=== PATIENT | female | born 1990 | race Caucasian/White ===

== ENCOUNTER 2019-03-27 10:34 | Emergency (ER) | payer OTHER ==
--- NOTE | 2019-03-27 12:39 | ED Physician Documentation ---
History of Present Illness - Stated complaint Stated Complaint: VOMITING/WEAKNESS - Chief complaint Chief Complaint: General - History obtained from History obtained from: Patient - History of Present Illness Timing: How many weeks ago (1) Pain level max: 0 Pain level now: 0 - Additonal information Additional information: 28-year-old female recently started on clonazepam 0.5 mg p.o. twice daily as well as Paxil. Unknown dosage. Since that time she has been feeling more tired than usual. States she has had intermittent nausea as well. No abdominal pain. No fevers. No possibility of . No coughing. Does not feel suicidal or homicidal. No hallucinations. Has not contacted her doctor. Nothing makes it better or worse Review of Systems Constitutional: denies: Fever, Chills Throat: denies: Sore throat GI: denies: Diarrhea, Hematemesis, Bloody / black stool : denies: Dysuria, Now EGA Skin: denies: Rash Musculoskeletal: denies: Neck pain, Back pain Neurologic: denies: Headache PD PAST MEDICAL HISTORY - Past Medical History Past Medical History: No Cardiovascular: None Respiratory: None Neuro: None Endocrine/Autoimmune: None GI: None DISTRIBUTION SPECIALIST: None : None HEENT: None Psych: Depression, Anxiety Musculoskeletal: Chronic back pain Derm: None - Past Surgical History Past Surgical History: Yes HEENT: Tonsil/Adenoidectomy Derm: Other - Present Medications Home Medications: Ambulatory Orders Medication Instructions Recorded Confirmed Nexplanon 01/15/16 Cephalexin [Keflex] 500 mg PO BID #10 capsule 07/23/16 Meloxicam 1 tab PO DAILY 07/23/16 07/23/16 Phenazopyridine HCl [Pyridium] 200 mg PO TID PRN #6 tablet 07/23/16 - Allergies Allergies/Adverse Reactions: Allergies Allergy/AdvReac Type Severity Reaction Status Date / Time No Known Drug Allergies Allergy Verified 03/27/19 10:42 - Social History Does the pt smoke?: Yes Smoking Status: Current every day smoker Does the pt drink ETOH?: Yes Does the pt have substance abuse?: No - Immunizations Immunizations are current?: Yes - POLST Patient has POLST: No PD ED PE NORMAL - Vitals Vital signs reviewed: Yes - General General: Alert and oriented X 3, No acute distress, Well developed/nourished - HEENT HEENT: PERRL, Moist mucous membranes - Neck Neck: Supple, no meningeal sign - Cardiac Cardiac: RRR, Strong equal pulses - Respiratory Respiratory: No respiratory distress, Clear bilaterally - Abdomen Abdomen: Soft, Non tender, Non distended - Derm Derm: Warm and dry - Extremities Extremities: No edema - Neuro Neuro: Alert and oriented X 3 - Psych Psych: Normal mood, Normal affect Results - Vitals Vitals: Vital Signs - 24 hr 03/27/19 10:38 Temperature 36.0 C L Heart Rate 105 H Respiratory 19 Rate Blood Pressure 127/91 H O2 Saturation 99 Oxygen O2 Source Room air PD MEDICAL DECISION MAKING - ED course Complexity details: considered differential, d/w patient ED course: Patient with apparent side effects from clonazepam, possibly the Paxil as well. We will have her decrease the clonazepam to 0.25 mg by mouth twice a day. We will have her contact her doctor for further instructions on her medications. Patient counseled regarding signs and symptoms for which I believe and urgent re-evaluation would be necessary. Patient with good understanding of and agreement to plan and is comfortable going home at this time This document was made in part using voice recognition software. While efforts are made to proofread this document, sound alike and grammatical errors may occur. Departure - Departure Disposition: 01 Home, Self Care Clinical Impression: Somnolence, Medication side effect Condition: Good Instructions: Clonazepam tablets Follow-Up: Evy Joseph ARNP [Primary Care Provider] - Within 3 Days Comments: Decrease your clonazepam to 0.25 mg by mouth twice a day. You can decrease this to once a day if you would like as well. Call your doctor today for a follow-up appointment and further instructions regarding your medications. Forms: Activity restrictions
[2019-03-27 12:54] VITALS: BP 96/68
== END 2019-03-27 12:56 | disposition home or self-care (01) ==
LOC: ED 10:34
DX: R40.0 Somnolence (principal); T42.4X5A Adverse effect of benzodiazepines, initial encounter; F17.200 Nicotine dependence, unspecified, uncomplicated
CPT/HCPCS: 99281; 99282

== ENCOUNTER 2021-05-05 19:51 | Emergency (ER) | payer OTHER ==
[2021-05-05 20:59] LABS: BASOPHILS % (AUTO) 0.3 %; EOSINOPHILS # (AUTO) 0.2 10^3/uL (0.0-0.7); EOSINOPHILS % (AUTO) 1.8 %; HGB - HEMOGLOBIN 15.4 g/dL (12.0-16.0); LYMPHOCYTES # (AUTO) 2.9 10^3/uL (1.5-3.5); LYMPHOCYTES % (AUTO) 26.9 %; MEAN CORPUSCULAR HEMOGLOBIN 31.9 pg (27.0-31.0); MEAN CORPUSCULAR VOLUME 91.1 fL (81.0-99.0); MEAN PLATELET VOLUME 10.3 fL (7.9-10.8); MONOCYTES # (AUTO) 0.6 10^3/uL (0.0-1.0); MONOCYTES % (AUTO) 5.4 %; NEUTROPHILS % (AUTO) 65.3 %; PLT - PLATELET COUNT 212 10^3/uL (130-450); RED BLOOD COUNT 4.83 10^6/uL (4.20-5.40); RED CELL DISTRIBUTION WIDTH 11.9 % (12.0-15.0); WHITE BLOOD COUNT 10.6 x10^3/uL (4.8-10.8)
[2021-05-05 21:11] LABS: ALBUMIN 4.8 g/dL (3.2-5.5); ALBUMIN/GLOBULIN RATIO 1.5 (1.0-2.2); BILIRUBIN,TOTAL 0.8 mg/dL (0.2-1.0); CALCIUM 9.9 mg/dL (8.5-10.3); CREATININE 0.7 mg/dL (0.4-1.0); POTASSIUM 3.5 mmol/L (3.5-5.0); TOTAL PROTEIN 8.1 g/dL (6.7-8.2)
--- NOTE | 2021-05-05 21:19 | ED Physician Documentation ---
History of Present Illness - Stated complaint Stated Complaint: CHEST PX - Chief complaint Chief Complaint: Cardiac - Additonal information Additional information: 30-year-old female presents emergency department for evaluation of intermittent sharp substernal chest pain that has been ongoing for 4 to 6 weeks. It occurs randomly and does not seem to be positional or exacerbated by activity. She denies any cough or shortness of breath. No associated nausea vomiting or diaphoresis with the chest pain episodes. They can last anywhere from a few seconds up to about 20 minutes. She has had no syncope. She has no history of DVT. She is not on any oral contraceptives. She is a smoker but does not carry a history of hypertension or diabetes. No family history of sudden or early coronary artery disease under the age of 50. Denies any recent travel unilateral leg swelling. Review of Systems Constitutional: reports: Reviewed and negative Eyes: reports: Reviewed and negative Ears: reports: Reviewed and negative Throat: reports: Reviewed and negative Cardiac: reports: Chest pain / pressure. denies: Palpitations, Pedal edema, Calf pain Respiratory: denies: Dyspnea, Cough GI: denies: Abdominal Pain, Abdominal Swelling : reports: Reviewed and negative Skin: reports: Reviewed and negative PD PAST MEDICAL HISTORY - Past Medical History Cardiovascular: None Respiratory: None Neuro: None Endocrine/Autoimmune: None GI: None MEDICAL REIMBURSEMENT MANAGER: None : None HEENT: None Psych: Depression, Anxiety Musculoskeletal: Chronic back pain Derm: None - Past Surgical History Past Surgical History: Yes HEENT: Tonsil/Adenoidectomy Derm: Other - Present Medications Home Medications: Ambulatory Orders Medication Instructions Recorded Confirmed Nexplanon 01/15/16 Meloxicam 1 tab PO DAILY 07/23/16 07/23/16 Phenazopyridine HCl [Pyridium] 200 mg PO TID PRN #6 tablet 07/23/16 cephALEXin [Keflex] 500 mg PO BID #10 capsule 07/23/16 - Allergies Allergies/Adverse Reactions: Allergies Allergy/AdvReac Type Severity Reaction Status Date / Time No Known Drug Allergies Allergy Verified 05/05/21 19:55 - Social History Does the pt smoke?: Yes Smoking Status: Current every day smoker Does the pt drink ETOH?: Yes Does the pt have substance abuse?: No - Immunizations Immunizations are current?: Yes - POLST Patient has POLST: No PD ED PE NORMAL - General General: Alert and oriented X 3, No acute distress - HEENT HEENT: PERRL - Neck Neck: Supple, no meningeal sign - Cardiac Cardiac: RRR, No murmur - Respiratory Respiratory: Clear bilaterally - Abdomen Abdomen: Normal bowel sounds, Soft, Non tender, Non distended - Back Back: No CVA TTP, No spinal TTP - Derm Derm: Normal color, Warm and dry, No rash - Extremities Extremities: No deformity - Neuro Neuro: Alert and oriented X 3, ammonia distiller 2-12 intact Eye Opening: Spontaneous Motor: Obeys Commands - Psych Psych: Normal mood Results - Vitals Vitals: Vital Signs - 24 hr 05/05/21 05/05/21 19:55 20:03 Temperature 36.5 C Heart Rate 112 H 99 Respiratory 16 16 Rate Blood Pressure 133/84 H 133/91 H O2 Saturation 99 99 Oxygen O2 Source Room air - EKG (time done) 1955 Rate: Rate (enter#) (110) Rhythm: Sinus tachycardia [place]: Normal Intervals: Normal SD QRS: Normal Ischemia: Normal ST segments Compare to prior EKG: Old EKG unavailable Computer interpretation: Agree with computer - Labs Labs: Laboratory Tests 05/05/21 05/05/21 05/05/21 20:52 20:52 20:52 WBC 10.6 RBC 4.83 Hgb 15.4 Hct 44.0 MCV 91.1 MCH 31.9 H MCHC 35.0 RDW 11.9 L Plt Count 212 MPV 10.3 Neut # (Auto) 7.0 H Lymph # (Auto) 2.9 Ward # (Auto) 0.6 Eos # (Auto) 0.2 Baso # (Auto) 0.0 Absolute Nucleated RBC 0.00 Nucleated RBC % 0.0 D-Dimer < 200.0 L Sodium 138 Potassium 3.5 Chloride 104 Carbon Dioxide 22 Anion Gap 12.0 BUN 7 Creatinine 0.7 Estimated GFR (MDRD) 100 Glucose 95 Calcium 9.9 Total Bilirubin 0.8 AST 19 ALT 23 Alkaline Phosphatase 63 Troponin I High Sens Total Protein 8.1 Albumin 4.8 Globulin 3.3 Albumin/Globulin Ratio 1.5 Lipase 22 05/05/21 20:52 WBC RBC Hgb Hct MCV MCH MCHC RDW Plt Count MPV Neut # (Auto) Lymph # (Auto) Ward # (Auto) Eos # (Auto) Baso # (Auto) Absolute Nucleated RBC Nucleated RBC % D-Dimer Sodium Potassium Chloride Carbon Dioxide Anion Gap BUN Creatinine Estimated GFR (MDRD) Glucose Calcium Total Bilirubin AST ALT Alkaline Phosphatase Troponin I High Sens < 2.3 L Total Protein Albumin Globulin Albumin/Globulin Ratio Lipase - Rads (name of study) CXR Radiology: Final report received (No acute cardiopulmonary process.) PD MEDICAL DECISION MAKING - ED course Complexity details: reviewed results, d/w patient, d/w family ED course: Well-appearing 22-year-old female presents the emergency department for evaluati on of chest pain that has been ongoing for 4 to 6 weeks. Intermittent sharp substernal nonradiating. Not associated with activity or exercise. No shortness of air. By Wells criteria and she is unlikely to have a PE however she presented with heart rate greater than 100 therefore a D-dimer was completed which was negative. Chest x-ray was also unremarkable. EKG is nonischemic high-sensitivity troponin CBC and electrolytes were also unrevealing. I suspect that she likely has a anxiety related component to this visit as she was quite anxious on presentation. However her chest pain was not reproducible. I have encouraged her close follow-up with her primary care provider. She may benefit from a Holter monitor or further evaluation with an echocardiogram. Departure - Departure Disposition: 01 Home, Self Care Clinical Impression: Chest pain Qualifiers: Chest pain type: unspecified Qualified Code(s): R07.9 - Chest pain, unspecified Instructions: ED Chest Pain Atypical Unkn Cause Comments: You were seen in the ER today for concerns of chest pain. The EKG that we did did not show signs of a heart attack. Your screening labs are all normal including your blood count your blood chemistry, as well as the test to see if your heart is releasing abnormal chemicals. We also did a test to make sure that you are not forming clots inappropriately and that was normal as well. The cause of your chest pain is not clear. Your chest x-ray is unremarkable for age. I do encourage you to follow-up with your primary care provider. If this continues you may benefit from a Holter monitor or further evaluation with a prepleater though with your age and lack of risk factors this is likely not a cardiac etiology.
--- NOTE | 2021-05-05 21:46 | XRAY Report ---
PROCEDURE: Chest 1 View X-Ray INDICATIONS: chest pain TECHNIQUE: One view of the chest was acquired. COMPARISON: None FINDINGS: Surgical changes and devices: None. Lungs and pleura: No pleural effusions or pneumothorax. Lungs are clear. Mediastinum: Mediastinal contours appear normal. Heart size is normal. Bones and chest wall: No suspicious bony lesions. Overlying soft tissues appear unremarkable. IMPRESSION: No acute cardiopulmonary abnormality Reviewed by: Casey Simms on 05/05/2021 9:44 PM PDT Approved by: Casey Simms on 05/05/2021 9:44 PM PDT Station ID: [id number]
[2021-05-05 22:42] VITALS: BP 128/74
== END 2021-05-05 22:42 | disposition home or self-care (01) ==
LOC: ED 19:51
DX: R07.89 Other chest pain (principal); F17.200 Nicotine dependence, unspecified, uncomplicated
CPT/HCPCS: 36415; 80053; 83690; 84484; 85025; 85379; 93005; 99284